=== PATIENT | female | born 1965 | race African-American/Black ===

== ENCOUNTER 2020-06-30 15:05 | Emergency (ER) | payer SELFPAY ==
[~2020-06-30] VITALS: Ht 165.1 cm; Wt 61.2 kg
[2020-06-30 15:09] VITALS: BP 123/85
[2020-06-30] MEDS ORDERED: FLUORESCEIN OPTH STRIP 1 MG OP ONE ×2 (15:40→16:05)
[2020-06-30] MEDS ORDERED: TETRACAINE HCL/PF 0.5% OPTH 4 ML BTL OP ONE (15:40)
[2020-06-30 16:44] VITALS: BP 123/85
[2020-06-30] MEDS ORDERED: FLUORESCEIN OPTH STRIP 1 MG OP STA (16:53)
== END 2020-06-30 16:40 | disposition home or self-care (01) ==
LOC: MED 15:05
DX: T15.01XA Foreign body in cornea, right eye, initial encounter (principal); X58.XXXA Exposure to other specified factors, initial encounter; Y93.89 Activity, other specified; Y92.89 Other specified places as the place of occurrence of the external cause; Y99.8 Other external cause status
CPT/HCPCS: 65220; 99284